=== PATIENT | female | born 1965 | race African-American/Black ===

== ENCOUNTER 2022-03-04 14:37 | Inpatient (IN) | payer OTHER ==
[~2022-03-04] VITALS: Ht 170.2 cm; Wt 0.1 kg
[2022-03-04 17:40] LABS: Basophils # (auto) 0.1 10 ^3/uL (0-0.2); Basophils % (auto) 2.2 % (0.0-2.0); Eosinophils # (auto) 0.3 10 ^3/uL (0-0.8); Eosinophils % (auto) 5.2 % (0.0-7.0); Hematocrit 31.3 % (36.0-46.0); Lymphocytes # (auto) 2.4 10 ^3/uL (0.4-5.4); Lymphocytes % (auto) 36.7 % (10.0-50.0); Mean Corpuscular Hgb Conc. 31.9 g/dL (32.0-36.0); Mean Corpuscular Volume 100.3 fL (80.0-100.0); Monocytes # (auto) 0.5 10 ^3/uL (0-1.3); Monocytes % (auto) 7.7 % (0.0-12.0); Neutrophils # (auto) 3.1 10 ^3/uL (1.6-8.6); Neutrophils % (auto) 48.2 % (37.0-80.0); Nucleated Red Blood Cells % 0.1 %; Red Blood Cells 3.13 10^6/uL (4.0-5.20); Red Cell Distribution Width 15.3 % (11.8-14.3); White Blood Cell 6.4 10^3/uL (4.4-10.8)
[2022-03-04 18:04] LABS: Albumin 3.6 g/dL (3.4-5.0); BUN/Creatinine Ratio 7.9; Calcium 9.1 mg/dL (8.5-10.1); Potassium 5.5 mmol/L (3.5-5.1)
[2022-03-04 18:07] LABS: Bilirubin, Total 0.3 mg/dL (0.2-1.0); Total Protein 7.4 g/dL (6.4-8.2)
[2022-03-04] MEDS ORDERED: ONDANSETRON HCL 4 MG/2 ML VIAL IV PRN (19:15)
[2022-03-04] MEDS ORDERED: DOCUSATE SOD 100 MG CAP PO PRN (19:15)
[2022-03-04] MEDS ORDERED: amLODIPine BESYLATE 5 MG TAB PO ONE (19:15)
[2022-03-04] MEDS ORDERED: HYDROcodone-ACET 5/325MG TAB PO PRN (19:15)
[2022-03-04] MEDS ORDERED: SODIUM ZIRCONIUM CYCL 10 GM PAK PO ONE (19:15)
[2022-03-05 01:30] VITALS: BP 179/92
[2022-03-05] MEDS ORDERED: AMLO-489 PO (04:01)
[2022-03-05] MEDS ORDERED: GABA-339 PO (04:04)
[2022-03-05] MEDS ORDERED: CINA90TA PO (04:04)
[2022-03-05 05:00] VITALS: BP 143/72
[2022-03-05 06:31] LABS: Basophils # (auto) 0 10 ^3/uL (0-0.2); Basophils % (auto) 0.8 % (0.0-2.0); Eosinophils # (auto) 0.3 10 ^3/uL (0-0.8); Hemoglobin 9.5 g/dL (12.2-16.2); Lymphocytes # (auto) 2.6 10 ^3/uL (0.4-5.4); Neutrophils # (auto) 2.4 10 ^3/uL (1.6-8.6); Nucleated Red Blood Cells % 0.1 %; White Blood Cell 5.7 10^3/uL (4.4-10.8)
[2022-03-05 06:33] LABS: Eosinophils % (auto) 5.3 % (0.0-7.0); Hematocrit 28.9 % (36.0-46.0); Lymphocytes % (auto) 45.2 % (10.0-50.0); Mean Corpuscular Hemoglobin 33.4 pg (28.0-32.0); Mean Corpuscular Hgb Conc. 32.9 g/dL (32.0-36.0); Mean Corpuscular Volume 101.3 fL (80.0-100.0); Monocytes # (auto) 0.4 10 ^3/uL (0-1.3); Monocytes % (auto) 7.2 % (0.0-12.0); Neutrophils % (auto) 41.5 % (37.0-80.0); Red Blood Cells 2.85 10^6/uL (4.0-5.20); Red Cell Distribution Width 15.2 % (11.8-14.3)
[2022-03-05 06:49] LABS: Albumin 3.3 g/dL (3.4-5.0); BUN/Creatinine Ratio 8.1; Bilirubin, Total 0.3 mg/dL (0.2-1.0); Calcium 9.2 mg/dL (8.5-10.1); Total Protein 6.9 g/dL (6.4-8.2)
[2022-03-05 06:56] LABS: Potassium 5.7 mmol/L (3.5-5.1)
[2022-03-05] MEDS ORDERED: SODIUM CHL 0.9% 1000 ML BAG XX ONE (07:30)
[2022-03-05 08:32] VITALS: BP 155/74
[2022-03-05] MEDS ORDERED: ENOXAPARIN SOD 30 MG/0.3 ML SYRINGE SC SCH (10:00)
[2022-03-05 12:55] VITALS: BP 151/86
[2022-03-05 13:18] LABS: Hepatitis A Ab IgM Negative; Hepatitis B Core IgM Negative
[2022-03-05 13:19] LABS: Hepatitis C Antibody Negative (Negative)
[2022-03-05 13:23] VITALS: BP 179/92
[2022-03-05] MEDS ORDERED: EPOETIN ALFA-EPBX 10,000 UNIT/1ML VIAL SC ONE (21:00)
== END 2022-03-05 14:37 | disposition home or self-care (01) | DRG 640 ==
LOC: ER 14:37 → OVERFLOW 19:01 → EAST 23:21
PROVIDERS: ADMIT Internal Medicine; ATTEND Family Medicine
PROC: 5A1D70Z Performance of Urinary Filtration, Intermittent, Less than 6 Hours Per Day (ICD-10-PCS; principal; 2022-03-05)
DX: E87.5 Hyperkalemia (principal); N18.6 End stage renal disease; J44.1 Chronic obstructive pulmonary disease with (acute) exacerbation; I12.0 Hypertensive chronic kidney disease with stage 5 chronic kidney disease or end stage renal disease; Z20.822 Contact with and (suspected) exposure to COVID-19; D63.1 Anemia in chronic kidney disease; E03.9 Hypothyroidism, unspecified; I16.0 Hypertensive urgency; Z99.2 Dependence on renal dialysis; Z88.0 Allergy status to penicillin
CPT/HCPCS: 36415; 80053; 80074; 82306; 83880; 83970; 84100; 85025; 90935; G0378